=== PATIENT | male | born 1970 | race African-American/Black ===

== ENCOUNTER 2020-05-30 09:41 | Inpatient (IN) | payer OTHER ==
[~2020-05-30] VITALS: Ht 177.8 cm; Wt 82.6 kg
[2020-05-30 09:43] VITALS: BP 109/68
[2020-05-30 10:24] LABS: MCH 32.1 pg (26.0-34.0); PLATELET COUNT 197 thou/uL (150-400); RBC 1.29 mil/uL (4.50-6.00); RDW 21.7 % (10.5-14.5); WBC 9.4 thou/uL (4.0-11.0)
[2020-05-30 10:31] LABS: HEMATOCRIT 11.5 % (42.0-52.0); HEMOGLOBIN 4.1 gm/dL (14.0-18.0)
[2020-05-30 10:40] LABS: ANION GAP 8 mmol/L (7-16); BUN 46 mg/dL (7-18); CALCIUM 7.9 mg/dL (8.5-10.1); CHLORIDE 97 mmol/L (98-107); CO2 27 mmol/L (21-32); GLUCOSE 64 mg/dL (74-106); POTASSIUM 4.7 mmol/L (3.5-5.1); SODIUM 132 mmol/L (136-145)
[2020-05-30 10:50] LABS: LIPASE 1074 U/L (73-393); TROPONIN-I <0.06 ng/mL (<0.06)
[2020-05-30 11:13] LABS: OBSERVED RETIC COUNT 1.3 % (0.6-2.6)
[2020-05-30 11:25] LABS: ALBUMIN 2.6 g/dL (3.4-5.0); DIRECT BILIRUBIN 2.1 mg/dL (<0.1-0.2); TOTAL PROTEIN 7.2 g/dL (6.4-8.2)
[2020-05-30 11:38] LABS: ABSOLUTE NEUTROPHILS 6.2 thou/uL (1.4-8.2)
[2020-05-30 11:42] LABS: ANISOCYTOSIS 2+
[2020-05-30 11:43] LABS: NUCLEATED RBCS 2 /100WBC
[2020-05-30 11:44] LABS: HYPOCHROMASIA 2+
[2020-05-30] MEDS ORDERED: FOLIC ACID1 MG PO (13:54)
[2020-05-30] MEDS ORDERED: DOXAZOSIN MESYLA2 MG PO (13:55)
[2020-05-30] MEDS ORDERED: LASIX 40 MG TAB40 MG PO (13:56)
[2020-05-30] MEDS ORDERED: METOPROLOL TAR100 MG PO (13:56)
[2020-05-30] MEDS ORDERED: AMLODIPINE BESY10 MG PO (13:56)
[2020-05-30] MEDS ORDERED: HYDRALAZINE HC100 MG PO (13:56)
[2020-05-30] MEDS ORDERED: SINGULAIR 10 MG10 M1 PO (13:57)
[2020-05-30] MEDS ORDERED: CALCITRIOL0.25 MCG PO (13:57)
--- NOTE | 2020-05-30 18:30 | NUR ---
TALKED WITH DR. AVELAR TO GET ORDER FOR PAIN MEDICATION PER REQUEST OF PT, ROSIO ORDERED FENTAL 25 MCG Q4H FOR MODERATE PAIN PRN, AND 50 MCG Q4H FOR SEVERE PAIN PRN.
[2020-05-30 20:20] VITALS: BP 94/49
--- NOTE | 2020-05-30 20:26 | NUR ---
TRIED TO CALL REPORT NURSE UNAVAILABLE.
[2020-05-30 21:28] VITALS: BP 119/65
[2020-05-31] VITALS (8 sets, daily range): BP systolic 110–158; BP diastolic 65–99
[2020-05-31] MEDS ORDERED: FLORANEX TABLE1 EACH PO (01:22)
[2020-05-31] MEDS ORDERED: VELTASSA8.4 GM PO (01:23)
[2020-05-31] MEDS ORDERED: PERCOCET 5-3251 EACH PO (01:25)
[2020-05-31] MEDS ORDERED: RENVELA0.8 GM PO (01:26)
--- NOTE | 2020-05-31 09:07 | EKG ---
[facility] [address] ELECTROCARDIOGRAM REPORT Name: SUKHI PALMER Room #: 353-P ADM IN M.R.#: [id number] Admission: 05/30/20 Attend Phys: Milo Couch MD Discharge: Date of : 72 Report #: [id number] THIS REPORT FOR: cc: FAM - Family physician unknown FAM - Family physician unknown Deni French MD ~ THIS REPORT FOR: //name// [facility] ED Test Date: 2020-05-30 Test Time: 10:08:33 Pat Name: SUKHI PALMER Department: Room: [facility] Gender: M Associate Software Engineer: : 1970 Requested By: Kartik Joseph Order Number: [id number] MD: Deni French Measurements Intervals [place] Rate: 65 P: 21 IL: 203 QRS: 19 QRSD: 114 T: 38 QT: 484 QTc: 504 Interpretive Statements Sinus rhythm Borderline prolonged IL interval Borderline intraventricular conduction delay Minimal ST depression, anterolateral leads Prolonged QT interval No previous ECG available for comparison Electronically Signed On 05-31-2020 9:07:26 CDT by Deni French [email or web address] <ELECTRONICALLY SIGNED> By: Deni French MD 05/31/2007 1008 Deni French MD /EPI
[2020-05-31 09:46] LABS: HEMATOCRIT 12.5 % (42.0-52.0); HEMOGLOBIN 4.5 gm/dL (14.0-18.0)
--- NOTE | 2020-05-31 15:40 | NUR ---
INITIAL ASSESSMENT: SW reviewed chart and spoke with nursing and attending physician. Pt was admitted from home due to pancreatitis. Pt placed in Enhanced Isolation to r/o COVID-19. Pt's test is negative. Pt may transfer off of 3W when a bed is available. Pt with hx of sickle cell anemia. Pt is currently afebrile and not requiring O2. Pt to have blood transfusion today. SW spoke with pt via phone. Introduced role of SW. Pt is alert/orientated x 4. Pt reports he lives at home with family. Prior to admission, pt was independent with ADLs. Pt does have a cane. Pt states he has about a total of 25 steps that he has to navigate at home. Pt reports he is able to make it up the steps. Pt goes to dialysis at the [facility] in [place]. Pt's dialysis time is T-R-S at 1115. Pt has transportation to and from dialysis. Pt states he has an hemotologist at [facility], Dr. Merino. No hx of services or post acute placement. Pt's goal is to return home when medically stable. SW is following to assist as needed with discharge planning
[2020-05-31 16:50] LABS: HEMATOCRIT 15.6 % (42.0-52.0); HEMOGLOBIN 5.5 gm/dL (14.0-18.0)
--- NOTE | 2020-05-31 18:24 | NUR ---
PATIENT WILL BE DISCHARGED TODAY TO HOME. HE IS ALERT ORIENTED X4. HE DENIES PAIN. HE AMBULATES WITH STEADY GAIT. STATES HE WILL BE OK AT HOME. WILL GO TO DIALYSIS IN THE AM. RESPIRATIONS NON LABORED. WILL CONT WITH PLAN OF CARE.
--- NOTE | 2020-05-31 22:19 | HC ---
[facility] [place] [address] [place] [address] CONSULTATION Name: SUKHI PALMER Room #: 353-P [facility] IN M.R.#: [id number] Admission: 05/30/20 Attend Phys: Milo Couch MD Discharge: 05/31/20 Date of : 72 Report #: [id number] THIS REPORT FOR: cc: FAM - Family physician unknown FAM - Family physician unknown Efra Duran MD ~ CC: [facility] unknown Primo Couch MD REASON FOR CONSULTATION: History of sickle cell disease and severe anemia. HISTORY OF PRESENT ILLNESS: The patient is a 49-year-old male, usually followed by Dr. Primo Merino in [facility]. He reports a several-day history of progressive leg swelling, some slightly shortness of air. Denies fever. Does have some abdominal pain, maybe a little bit of nausea, ____ any vomiting, no bowel changes, no bleeding that he is aware of. Discussed with the patient that it looks like when he was usually admitted to the hospital, his hemograms are on 4.1, he transfuses up slightly above 5. He does report hearing about hydroxyurea, but he does not think he has ever been on it. He also reports the same for L-glutamine. He does seem to recall that he may have been on erythropoietin shot for several doses and is not sure why they discontinued or did not use it. We will check with Primo Merino regarding several of these. The patient does appear to have ____ suspicious that he is iron overloaded, but does not report use of any iron chelator such as Desferal or Exjade. FAMILY HISTORY: Mother and father had sickle trait by his description. He had a sister that from sickle cell complications, another is healthy. I think he mentioned he had several children and they are alive and well. SOCIAL HISTORY: He is ____, used to work as a automotive airconditioning mechanic. CURRENT MEDICATIONS: Medications in the hospital currently include hydrocodone p.r.n., fentanyl p.r.n. Note as an outpatient, his medicines appeared to include on a discharge summary from May, oxycodone 5 mg q. 6 p.r.n. for his pain scale of 7-10. Also, perhaps furosemide 40 mg daily, metoprolol 100 b.i.d., amlodipine 10 daily, hydralazine 100 t.i.d., Rocaltrol 0.25 mcg daily, something called Veltassa b.i.d., Singulair 10 mg daily, doxazosin 2 mg b.i.d. Also, another medication called Renvela 2400 mg daily. PHYSICAL EXAMINATION: GENERAL: The patient appears his stated age. VITAL SIGNS: Height is 5 feet 10 inches, 177.8 cm, 182 pounds or 82.7 [place] [address] CONSULTATION Name: SUKHI PALMER Room #: 353-P [facility] IN M.R.#: [id number] Admission: 05/30/20 Attend Phys: Milo Couch MD Discharge: 05/31/20 Date of : 72 Report #: [id number] kilograms. Reportedly from the renal note, this may be around 4-5 pounds above dry weight. Blood pressure is 126/73, O2 sat 91%, respirations 18, pulse 73, temperature 98.1. MOOD: The patient is alert and pleasant. LUNGS: Does have some slight rhonchi in the left lung field, is also partly obscured by his stomach growling as he is waiting for breakfast. LYMPHATICS: No enlarged lymph nodes in the supraclavicular, cervical, axillary or inguinal region. RESPIRATORY: Upon respiratory, the patient does not have distress, is not using accessory muscles, appears unlabored. HEART: Regular rate. ABDOMEN: Slightly obese. No definite masses, maybe minimally tender. EXTREMITIES: Without clubbing, cyanosis. There is some trace edema. LABORATORY DATA: Lab review here shows a sodium of 132, BUN of 46, creatinine of 5. AST 132, lipase 1074. Total bilirubin 3, note that at the outside hospital he was around 4. Direct bilirubin 2.1, alkaline phosphatase 240, ALT 83, albumin 2.6. White count 9.4, hemoglobin 4.1. He is getting 2 units of blood if I recall and plan for repeat hemoglobin. MCV 89, RDW 21.7, platelets 197. Differential, no acute forms. Absolute retic count was 0.0169. Initial COVID-19 antigen is negative. Imaging here, he had an abdominal ultrasound that revealed quite hepatomegaly and also pancreatic calcifications. Liver measures 17.4 cm. Gallbladder surgically absent. Spleen was thought to be unremarkable. No evidence of hydronephrosis. Chest x-ray, cardiomegaly and bilateral pulmonary parenchymal opacities suggestive of pulmonary venous congestion and fluid overload. ASSESSMENT AND PLAN: 1. Sickle cell disease and anemia, I agree with transfusion. If he is having a crisis not much higher, worse than usual, as soon as his bilirubin appears to be up to 4, we continue with fluids cautiously given end-stage renal disease. Also, opiates and oxygen as needed. We will check with Dr. Merino about outpatient management with possible use of L-glutamine and/or hydroxyurea and/or erythropoietin. 2. End-stage renal disease, dialyzed per others. 3. Anemia that may be related to chronic kidney disease. We will check EPO level, B12, folate and iron panel. 4. Possible iron overload. We will await lab test. 5. Hepatomegaly. Continue monitoring. 6. Chronic pancreatitis. Defer management to others. 7. Hypertension. Meds per others. 8. History of gout. Meds per others. We will follow. <ELECTRONICALLY SIGNED> By: Efra Duran MD 05/31/20 2219 0901 1005 Efra Duran MD /nt
== END 2020-05-31 19:15 | disposition home or self-care (01) | DRG 811 ==
LOC: ER 09:41 → EROBS 14:41 → 3W 14:41
PROVIDERS: Emergency Medicine; ADMIT Internal Medicine; ATTEND Internal Medicine
PROC: 30233N1 Transfusion of Nonautologous Red Blood Cells into Peripheral Vein, Percutaneous Approach (ICD-10-PCS; principal; 2020-05-31)
PROC: 5A1D70Z Performance of Urinary Filtration, Intermittent, Less than 6 Hours Per Day (ICD-10-PCS; principal; 2020-05-31)
DX: D57.00 Hb-SS disease with crisis, unspecified (principal); N18.6 End stage renal disease; K86.1 Other chronic pancreatitis; I13.2 Hypertensive heart and chronic kidney disease with heart failure and with stage 5 chronic kidney disease, or end stage renal disease; D62 Acute posthemorrhagic anemia; Z20.828 Contact with and (suspected) exposure to other viral communicable diseases; M10.9 Gout, unspecified; I50.9 Heart failure, unspecified; D63.8 Anemia in other chronic diseases classified elsewhere; Z99.2 Dependence on renal dialysis; Z88.6 Allergy status to analgesic agent; Z79.899 Other long term (current) drug therapy; Z83.2 Family history of diseases of the blood and blood-forming organs and certain disorders involving the immune mechanism
CPT/HCPCS: 10879; 32100